=== PATIENT | male | born 1980 | race Caucasian/White ===

== ENCOUNTER 2018-08-28 15:39 | Emergency (ER) | payer OTHER ==
[~2018-08-28] VITALS: Ht 167.6 cm; Wt 115.3 kg
[2018-08-28 15:47] VITALS: Ht 167.6 cm; Wt 115.3 kg
[2018-08-28] MEDS ORDERED: KETOROLAC 30 MG INJ IM STA (16:32)
[2018-08-28] MEDS ORDERED: DEXAMETHASONE 10 MG/ML 1 ML INJ IM ONE (17:00)
[2018-08-28] MEDS ORDERED: METHOCARBAMOL 750 MG TAB PO ONE (17:00)
[2018-08-28] MEDS ORDERED: METH750T93 PO (18:02)
[2018-08-28] MEDS ORDERED: TYL500 PO (18:02)
[2018-08-28] MEDS ORDERED: IBUP-1542 PO (18:02)
[2018-08-28 18:11] VITALS: BP 137/69; PULSE 79; RESP 19
--- NOTE | 2018-08-29 01:54 | ERD ---
ER Documentation Chief Complaint Chief Complaint Complains of back pain x 3 days HPI 37-year-old male presents for low back pain times 3 days. He states that the back pain is actually been going on for 2 weeks however this pain is worse in the past 3 days. He states that the back pain is more on the right side, rated 7 out of 10. He states that he went to urgent care a few days ago and had a urine test which was negative. He was given prescription for ibuprofen 800 mg. Medication has been helping however the pain returns. 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 Denies loss of bowel or bladder function. Denies fevers or chills. Denies chest pain, shortness of breath, abdominal pain, nausea, vomiting. History of recent infection, no spine procedures, no history of cancer. ROS All systems reviewed and are negative except as per history of present illness. Medications Home Meds Active Scripts Methocarbamol* (Robaxin*) 750 Mg Tablet, 750 MG PO TID PRN for PAIN, #30 TAB Prov:CHANELL BERRIOS DO 08/28/18 Acetaminophen* (Tylenol*) 500 Mg Tab, 500 MG PO Q4H PRN for MILD PAIN LEVEL 1-3, #30 TAB Prov:CHANELL BERRIOS DO 08/28/18 Ibuprofen* (Ibuprofen*) 600 Mg Tablet, 600 MG PO Q6H PRN for PAIN, #30 TAB Prov:CHANELL BERRIOS DO 08/28/18 Allergies Allergies: Coded Allergies: No Known Allergy (Unverified , 08/28/18) PMhx/Soc Medical and Surgical Hx: pt denies Medical Hx, pt denies Surgical Hx Hx Alcohol Use: No Hx Substance Use: No Hx Tobacco Use: No Smoking Status: Never smoker Physical Exam Vitals Vital Signs Date Temp Pulse Resp B/P (MAP) Pulse Ox O2 O2 Flow FiO2 Time Delivery Rate 08/28/18 79 19 137/69 100 Room Air 18:11 (91) 08/28/18 99.4 90 20 152/86 97 15:47 (108) Physical Exam Const: No acute distress Resp: Clear to auscultation bilaterally Cardio: Regular rate and rhythm, no murmurs, bilateral radial and dorsalis pedis pulses intact Abd: Soft, non tender, non distended. Normal bowel sounds Skin: No petechiae or rashes Back: Lumbar spine paravertebral muscle tenderness to palpation, no midline tenderness. Ext: No cyanosis, or edema, muscle strength 5 out of 5 upper and lower extremities Neur: Awake and alert, bilateral upper and lower extremity sensation intact Psych: Normal Mood and Affect Results 24 hrs Current Medications Medications Dose Sig/Kathy Start Time Status Last (Trade) Ordered Route PRN Stop Time Admin Dose Reason Admin Ketorolac 30 mg ONCE STAT 08/28/18 DC 08/28/18 Tromethamine IM 16:32 16:53 (Toradol) 08/28/18 16:34 10 mg ONCE ONCE 08/28/18 DC 08/28/18 Dexamethasone IM 17:00 16:53 (Decadron) 08/28/18 17:01 750 mg ONCE ONCE 08/28/18 DC 08/28/18 Methocarbamol PO 17:00 17:11 (Robaxin) 08/28/18 17:01 Procedures/MDM Medical Decision Making: Differential diagnosis includes but not limited to muscle strain, ligamentous sprain, fracture, dislocation, epidural abscess, osteomyelitis. Patient appeared well on physical examination, nontoxic appearing. There is paravertebral muscle tenderness to palpation, no midline tenderness. Lumbar and thoracic x-rays were unremarkable Patient was given Toradol, Decadron, Robaxin in the ER with relief of symptoms. Patient likely has a muscle strain versus ligamentous sprain. Patient advised that he may need physical therapy which she can get from his primary care physician if the back pain persist. Patient given prescription for Robaxin, Tylenol, Motrin. Patient advised to follow up with PCP in 1-2 days. Patient advised to return to ED for new or worsening symptoms. Patient stable on discharge from the ED. Disclaimer: Inadvertent spelling and grammatical errors are likely due to EHR/dictation software use and do not reflect on the overall quality of patient care. Also, please note that the electronic time recorded on this note does not necessarily reflect the actual time of the patient encounter. Departure Diagnosis: Primary Impression: Back pain Condition: Fair Patient Instructions: Back Pain (Acute Or Chronic) Referrals: [facility] YOU HAVE RECEIVED A MEDICAL SCREENING EXAM AND THE RESULTS INDICATE THAT YOU DO NOT HAVE A CONDITION THAT REQUIRES URGENT TREATMENT IN THE EMERGENCY DEPARTMENT. FURTHER EVALUATION AND TREATMENT OF YOUR CONDITION CAN WAIT UNTIL YOU ARE SEEN IN YOUR DOCTORS OFFICE WITHIN THE NEXT 1-2 DAYS. IT IS YOUR RESPONSIBILITY TO MAKE AN APPOINTMENT FOR FOLOW-UP CARE. IF YOU HAVE A PRIMARY DOCTOR --you should call your primary doctor and schedule an appointment IF YOU DO NOT HAVE A PRIMARY DOCTOR YOU CAN CALL OUR PHYSICIAN REFERRAL HOTLINE AT IF YOU CAN NOT AFFORD TO SEE A PHYSICIAN YOU CAN CHOSE FROM THE FOLLOWING [facility] [address] [facility] [address] [facility]. [facility] [address] [facility] [address] [facility] [address] [facility]. [facility]. [address] Additional Instructions: Call your primary care doctor TOMORROW for an appointment during the next 1-2 days.See the doctor sooner or return here if your condition worsens before your appointment time. CHANELL BERRIOS DO Aug 29, 2018 01:54
== END 2018-08-28 18:12 | disposition home or self-care (01) ==
LOC: FTE 15:39
DX: M54.9 Dorsalgia, unspecified (principal)
CPT/HCPCS: 72072; 72100; 96372; 99284; J1100; J1885

== ENCOUNTER 2018-11-28 17:41 | Emergency (ER) | payer OTHER ==
[~2018-11-28] VITALS: Ht 177.8 cm; Wt 112.9 kg
[~2018-11-28 17:41] MED LIST: IBUP-1542 PO; METH750T93 PO; TYL500 PO
[2018-11-28 17:51] VITALS: BP 138/92; PULSE 98; RESP 18; Ht 177.8 cm; Wt 112.9 kg
[2018-11-28] MEDS ORDERED: LIDOCAINE/MYLANTA 40 ML BTL PO STA (20:06)
[2018-11-28] MEDS ORDERED: ONDANSETRON (ODT) 4 MG TAB ODT STA (20:06)
[2018-11-28] MEDS ORDERED: CIPR500T4 PO (21:08)
[2018-11-28] MEDS ORDERED: LOPE2CAP PO (21:08)
[2018-11-28] MEDS ORDERED: ONDA4TAB14 PO (21:08)
--- NOTE | 2018-11-28 21:12 | ERD ---
ER Documentation Chief Complaint Chief Complaint ABD PAIN , NAUSEA /VOMITING/DIARRHEA X 3 DAYS HPI 37-year-old male presents for abdominal pain, nausea, vomiting, diarrhea times 3 days. He states abdomen pain is diffuse. Rated 5 out of 10. Vomited multiple times. He did recently go to [facility]. Denies significant past medical history. ROS All systems reviewed and are negative except as per history of present illness. Medications Home Meds Active Scripts Ciprofloxacin Hcl* (Ciprofloxacin Hcl*) 500 Mg Tablet, 500 MG PO BID for diarrhea for 3 Days, #6 TAB Prov:CHANELL BERRIOS DO 11/28/18 Ondansetron (Ondansetron Odt) 4 Mg Tab.rapdis, 4 MG PO Q6H PRN for NAUSEA AND/OR VOMITING, #15 TAB Prov:CHANELL BERRIOS DO 11/28/18 Loperamide Hcl* (Imodium*) 2 Mg Capsule, 2 MG PO .AFTER EA LOOSE BM PRN for DIARRHEA, #20 TAB maximum 16mg (8 pills) daily Prov:CHANELL BERRIOS DO 11/28/18 Methocarbamol* (Robaxin*) 750 Mg Tablet, 750 MG PO TID PRN for PAIN, #30 TAB Prov:CHANELL BERRIOS DO 08/28/18 Acetaminophen* (Tylenol*) 500 Mg Tab, 500 MG PO Q4H PRN for MILD PAIN LEVEL 1-3, #30 TAB Prov:CHANELL BERRIOS DO 08/28/18 Ibuprofen* (Ibuprofen*) 600 Mg Tablet, 600 MG PO Q6H PRN for PAIN, #30 TAB Prov:CHANELL BERRIOS DO 08/28/18 Allergies Allergies: Coded Allergies: No Known Allergy (Unverified , 08/28/18) PMhx/Soc Medical and Surgical Hx: pt denies Medical Hx, pt denies Surgical Hx Hx Alcohol Use: No Hx Substance Use: No Hx Tobacco Use: No Smoking Status: Never smoker Physical Exam Vitals Vital Signs Date Temp Pulse Resp B/P (MAP) Pulse Ox O2 O2 Flow FiO2 Time Delivery Rate 11/28/18 98.1 98 18 138/92 99 17:51 (107) Physical Exam Const: No acute distress Resp: Clear to auscultation bilaterally Cardio: Regular rate and rhythm, no murmurs Abd: Soft, non distended. Normal bowel sounds, no McBurney's point tenderness, no Rocha sign, no rebound or guarding noted Skin: No petechiae or rashes Back: No midline or flank tenderness Ext: No cyanosis, or edema Neur: Awake and alert Psych: Normal Mood and Affect Result Diagram: 11/28/18201411/28/182014 Results 24 hrs Laboratory Tests Test 11/28/18 20:15 White Blood Count 12.0 10^3/ul Red Blood Count 5.18 10^6/ul Hemoglobin 15.2 g/dl Hematocrit 46.9 % Mean Corpuscular Volume 90.5 fl Mean Corpuscular Hemoglobin 29.3 pg Mean Corpuscular Hemoglobin Concent 32.4 g/dl Red Cell Distribution Width 13.7 % Platelet Count 277 10^3/UL Mean Platelet Volume 9.2 fl Immature Granulocytes % 0.900 % Neutrophils % 61.6 % Lymphocytes % 24.4 % Monocytes % 9.0 % Eosinophils % 3.8 % Basophils % 0.3 % Nucleated Red Blood Cells % 0.0 /100WBC Immature Granulocytes # 0.110 10^3/ul Neutrophils # 7.4 10^3/ul Lymphocytes # 2.9 10^3/ul Monocytes # 1.1 10^3/ul Eosinophils # 0.5 10^3/ul Basophils # 0.0 10^3/ul Nucleated Red Blood Cells # 0.0 10^3/ul Urine Color YELLOW Urine Clarity CLEAR Urine pH 5.0 Urine Specific [place] 1.031 Urine Ketones NEGATIVE mg/dL Urine Nitrite NEGATIVE mg/dL Urine Bilirubin NEGATIVE mg/dL Urine Urobilinogen NEGATIVE mg/dL Urine Leukocyte Esterase NEGATIVE Haresh/ul Urine Hemoglobin NEGATIVE mg/dL Urine Glucose NEGATIVE mg/dL Urine Total Protein NEGATIVE mg/dl Sodium Level 142 mmol/L Potassium Level 3.7 mmol/L Chloride Level 102 mmol/L Carbon Dioxide Level 28 mmol/L Anion Gap 12 Blood Urea Nitrogen 18 mg/dl Creatinine 0.82 mg/dl Est Glomerular Filtrat Rate mL/min > 60 mL/min Glucose Level 96 mg/dl Calcium Level 9.5 mg/dl Total Bilirubin 0.4 mg/dl Direct Bilirubin 0.00 mg/dl Indirect Bilirubin 0.4 mg/dl Aspartate Amino Transf (AST/SGOT) 21 IU/L Alanine Aminotransferase (ALT/SGPT) 45 IU/L Alkaline Phosphatase 79 IU/L Total Protein 8.2 g/dl Albumin 4.5 g/dl Globulin 3.70 g/dl Albumin/Globulin Ratio 1.21 Lipase 62 U/L Current Medications Medications Dose Sig/Kathy Start Time Status Last (Trade) Ordered Route PRN Stop Time Admin Dose Reason Admin 40 ml ONCE STAT 11/28/18 DC 11/28/18 Miscellaneous PO 20:06 11/28/18 20:21 Medication 20:08 (Gi Cocktail (2)) Ondansetron 4 mg ONCE STAT 11/28/18 DC 11/28/18 HCl (Zofran ODT 20:06 11/28/18 20:21 Odt) 20:08 Procedures/MDM Medical Decision Making: Differential diagnosis includes but not limited to acute gastritis, acute gastroenteritis, appendicitis, cholecystitis, pancreatitis. Patient appeared well on physical exam. Nontoxic appearing. Abdominal examination was relatively benign. ED course: Patient was given . Symptoms improved with treatment. Labs: CBC showed no severe anemia, mild elevated WBC 12, likely stress reaction CMP showed no electrolyte abnormalities, there was normal kidney and liver function Lipase was normal UA was negative for infection Given benign abdominal exam and unremarkable labs, there is low suspicion for an acute abdomen Patient possibly has traveler's diarrhea given recent travel Prescription(s): Patient given prescription for supportive medications and Cipro. Patient advised to follow up with PCP in 1-2 days. Patient advised to return to ED for new or worsening symptoms. Patient stable on discharge from the ED. Disclaimer: Inadvertent spelling and grammatical errors are likely due to EHR/dictation software use and do not reflect on the overall quality of patient care. Also, please note that the electronic time recorded on this note does not necessarily reflect the actual time of the patient encounter. Departure Diagnosis: Primary Impression: Nausea vomiting and diarrhea Condition: Fair Patient Instructions: Traveler's Diarrhea (6Y-Adult) [facility]errals: [facility] YOU HAVE RECEIVED A MEDICAL SCREENING EXAM AND THE RESULTS INDICATE THAT YOU DO NOT HAVE A CONDITION THAT REQUIRES URGENT TREATMENT IN THE EMERGENCY DEPARTMENT. FURTHER EVALUATION AND TREATMENT OF YOUR CONDITION CAN WAIT UNTIL YOU ARE SEEN IN YOUR DOCTORS OFFICE WITHIN THE NEXT 1-2 DAYS. IT IS YOUR RESPONSIBILITY TO MAKE AN APPOINTMENT FOR FOLOW-UP CARE. IF YOU HAVE A PRIMARY DOCTOR --you should call your primary doctor and schedule an appointment IF YOU DO NOT HAVE A PRIMARY DOCTOR YOU CAN CALL OUR PHYSICIAN REFERRAL HOTLINE AT IF YOU CAN NOT AFFORD TO SEE A PHYSICIAN YOU CAN CHOSE FROM THE FOLLOWING [facility] [address] [facility] [address] [facility] [facility] [address] [facility] [address] [facility] [facility] [address] [facility]. [facility] [address] Additional Instructions: Call your primary care doctor TOMORROW for an appointment during the next 1-2 days.See the doctor sooner or return here if your condition worsens before your appointment time. Get referral to gastroenterology if symptoms do not improved in 3-4 days. CHANELL BERRIOS DO Nov 28, 2018 21:12
== END 2018-11-28 21:15 | disposition home or self-care (01) ==
LOC: FTE 17:41
DX: R11.2 Nausea with vomiting, unspecified (principal); R19.7 Diarrhea, unspecified
CPT/HCPCS: 36415; 80053; 81003; 83690; 85025; 99283